=== PATIENT | female | born 1950 | race Caucasian/White ===

== ENCOUNTER → 2018-01-04 | Outpatient (CLI) | payer OTHER ==
[~2018-01-04] MED LIST: ASPI-1197 PO; ATOR10TA69 PO; HYDROCHLOROT PO
== END | disposition home or self-care (01) ==
LOC: RAH 13:31
PROVIDERS: ATTEND Internal Medicine
DX: I83.891 Varicose veins of right lower extremity with other complications (principal); M79.604 Pain in right leg; M79.89 Other specified soft tissue disorders
CPT/HCPCS: 93971

== ENCOUNTER → 2023-02-22 | Outpatient (CLI) | payer MEDICARE, OTHER | END | disposition home or self-care (01) | LOC: RAH 11:47 | PROVIDERS: ATTEND Internal Medicine | DX: S20.212A Contusion of left front wall of thorax, initial encounter (principal); X58.XXXA Exposure to other specified factors, initial encounter; Y93.89 Activity, other specified; Y92.89 Other specified places as the place of occurrence of the external cause; Y99.8 Other external cause status | CPT/HCPCS: 71100 ==

== ENCOUNTER → 2024-02-02 | Outpatient (CLI) | payer MEDICARE, OTHER | END | disposition home or self-care (01) | LOC: RAH 13:18 | PROVIDERS: ATTEND Internal Medicine | DX: R22.2 Localized swelling, mass and lump, trunk (principal); N64.4 Mastodynia | CPT/HCPCS: 76857 ==

== ENCOUNTER → 2024-02-10 | Outpatient (CLI) | payer MEDICARE, OTHER ==
--- NOTE | 2024-02-10 15:16 | HMCIMG ---
CT PELVIS W/O CONTRAST REASON: LEFT GLUTEAL LUMP/ PALP COMPARISON: None TECHNIQUE: Patient was scanned in the prone position for evaluation of a left gluteal mass. Images were obtained from iliac crests to the perineum. Skin marker was placed in the left gluteal region at the site of possible palpable abnormality. FINDINGS: There is mild diffuse induration in the soft tissues deep to the skin markers. This is a nonspecific finding. And he focal cause of bruising or edema can result in this appearance. The area of abnormal attenuation is small, 1 x 3 cm. There is no evidence of a discrete focal mass. There is no evidence of fluid collection or abscess. Simultaneous soft tissues appear otherwise unremarkable. Previous muscles appear normal. There are no focal osseous lesions. Visualized bowel loops appear unremarkable. There is no free air or fluid. There are no intraperitoneal focal fluid collections. IMPRESSION: 1. There is a 1 x 3 cm area of mild induration or edema in the simultaneous soft tissues at the site of possible palpable left gluteal mass 2. Otherwise unremarkable noncontrast CT pelvis.
== END | disposition home or self-care (01) ==
LOC: RAH 13:58
PROVIDERS: ATTEND Internal Medicine
DX: M79.9 Soft tissue disorder, unspecified (principal); R22.2 Localized swelling, mass and lump, trunk
CPT/HCPCS: 72192

== ENCOUNTER → 2024-02-11 | Outpatient (CLI) | payer MEDICARE, OTHER | END | disposition home or self-care (01) | LOC: RAH 13:02 | PROVIDERS: ATTEND Internal Medicine | DX: N64.4 Mastodynia (principal) ==

== ENCOUNTER → 2025-01-15 | Outpatient (CLI) | payer OTHER ==
--- NOTE | 2025-01-16 09:56 | HMCIMG ---
EXAM: CT Cardiac calcium scoring. CLINICAL HISTORY: Screening. TECHNIQUE: Thin collimated axial CT cardiac images were obtained. A CT scan is done according to ALARA (As Low As Reasonably Achievable). CONTRAST: None. COMPARISON: None provided. FINDINGS: Calcium Score: VESSEL Number of lesions Volume mm3 Equi. Mass/mg Calcium score LM 1 43.2 - 65.1 LAD 2 10.8 - 18.1 LCX 0 0.0 - 0.0 RCA 0 0.0 - 0.0 Total 3 54.0 - 83.2 IMPRESSION: The total calcium score is 83.2. 60th percentile. /[place]
== END | disposition home or self-care (01) ==
LOC: RAH 13:24
PROVIDERS: ATTEND Internal Medicine Cardiovascular Disease
DX: Z13.6 Encounter for screening for cardiovascular disorders (principal)
CPT/HCPCS: 75571